=== PATIENT | male | born 1955 | race Hispanic/Latino ===

== ENCOUNTER 2022-09-18 00:07 | Emergency (ER) | payer SELFPAY ==
[2022-09-18 01:00] LABS: Absolute Lymphocytes (CBC) 2.1 K/uL (0.7-4.9); Hematocrit 46.5 % (39.6-49.0); Lymphocytes % 36.4 % (15.3-44.8); MCV 94.8 fL (80-100); MPV 8.9 fL (7.6-11.3); RBC Red Blood Cell Count 4.91 M/uL (4.33-5.43)
[2022-09-18] MEDS ORDERED: CEFAZOLIN SODIUM 1 GM/VIAL ONE (01:05)
[2022-09-18] MEDS ORDERED: NA CHLORIDE 0.9% 100 ML ONE (01:05)
[2022-09-18] MEDS ORDERED: TDAP (DIPHTH,PERTUSS(ACELL),TET VAC) 0.5 ML VIAL IMVAC ONE (01:06)
[2022-09-18 01:08] LABS: Protime INR 0.97
[2022-09-18 01:16] LABS: Potassium 3.5 mEq/L (3.5-5.1)
--- NOTE | 2022-09-18 02:10 | ER ---
Nurse's Notes [facility] Name: Leonid Hagen Age: 66 yrs Sex: Male : 1955 Arrival Date: 09/18/2022 Time: 00:07 Bed 6 Private MD: Diagnosis: Laceration of flexor muscle, fascia and tendon of right little finger at wrist and hand level, initial encounter Presentation: 09/18 00:23 Chief complaint: Patient states: hand slipped on knife and cut sustained to carter kl aspect of right ring and 5th finger no active bleeding at this manjinder. Coronavirus screen: Vaccine status: Patient reports being unvaccinated. Ebola Screen: Patient negative for fever greater than or equal to 101.5 degrees Fahrenheit, and additional compatible Ebola Virus Disease symptoms. Initial Sepsis Screen: Does the patient meet any 2 criteria? No. Patient's initial sepsis screen is negative. Does the patient have a suspected source of infection? No. Patient's initial sepsis screen is negative. Risk Assessment: Do you want to hurt yourself or someone else? Patient reports no desire to harm self or others. Note pt reports unable to move 5th finger and reports no feeling in both fingers. 00:23 Method Of Arrival: Ambulatory 00:23 Acuity: MARY 3 kl 02:24 Onset of symptoms was September 17, 2022. rv Triage Assessment: 00:27 General: Appears in no apparent distress. Behavior is calm, cooperative. Pain: Denies kl pain. Injury Description: Laceration was sustained less than 30 minutes ago. a small amount of bleeding noted at this time. 02:24 Musculoskeletal: Circulation, motion, and sensation intact. rv Historical: - Allergies: 00:26 No Known Allergies; kl - Home Meds: 00:26 None [Active]; kl - PMHx: 00:26 None; kl - PSHx: 00:26 None; kl - Immunization history:: Last tetanus immunization: unknown. - Social history:: Smoking status: Patient reports use of chewing tobacco. Screenin:00 [facility] ED Fall Risk Assessment (Adult) History of falling in the last 3 months, rv including since admission No falls in past 3 months (0 pts) Confusion or Disorientation No (0 pts) Intoxicated or Sedated No (0 pts) Impaired Gait No (0 pts) Mobility Assist Device Used No (0 pt) Altered Elimination No (0 pt) Score/Fall Risk Level 0 - 2 = Low Risk Oriented to surroundings, Maintained a safe environment, Educated pt \T\ family on fall prevention, incl call for assistance when getting out of bed, Assessed \T\ reinforced patient's understanding of fall precautions, Provided non-skid footwear, Hourly rounding (assess needs \T\ fall precautionary measures) done, Used ambulatory aids as needed (educated on \T\ assisted with), Used gait belt as appropriate. 01:00 Abuse screen: Denies threats or abuse. Denies injuries from another. Nutritional rv screening: No deficits noted. Tuberculosis screening: No symptoms or risk factors identified. Vital Signs: 00:23 BP 148 / 97; Pulse 81; Resp 18; Temp 98.3; Pulse Ox 98% on R/A; Weight 77.11 kg (R); kl Height 5 ft. 6 in. ; Pain 0/10; 02:07 BP 150 / 93; Pulse 74; Resp 18; Pulse Ox 97% on R/A; rv 00:23 Body Mass Index 27.44 (77.11 kg, 167.64 cm) kl 00:23 Pain Scale: Adult ED Course: 00:08 Patient arrived in ED. ja2 00:20 Grant Rodriguez PA is PHCP. cp 00:20 Montez Barros MD is Attending Physician. cp 00:26 Triage completed. kl 00:52 Initiated transfer to [facility] per Pt request, spoke with Kayla. 01:12 Jeremy Bacon, PAULO is Primary Nurse. rv 01:13 XRAY Hand RIGHT 3 View In Process Unspecified. EDMS 01:23 [facility] called back to do Dr. meliza Campbell and referred for Follow up appt to be placed rather wm than a transfer. Follow up number to call [phone]. 01:30 Patient has correct armband on for positive identification. Bed in low position. Call rv light in reach. Side rails up X 1. Client placed on continuous cardiac and pulse oximetry monitoring. NIBP monitoring applied. 01:30 Inserted saline lock: 18 gauge in left forearm, using aseptic technique. Blood rv collected. 01:37 Initiated transfer to [facility], spoke with Jessy. 02:00 [facility] called back for Dr. meliza Campbell with immediate acceptance of transfer by Dr. Valdovinos to [facility] ER. 02:22 Assist provider with laceration repair on palmar aspect of proximal phalanx of right rv little finger and palmar aspect of proximal phalanx of right ring finger that was 2.5 cm. or less using sutures. Set up tray. Performed by Grant MUSTAFA Dressed with 4X4s, Patient tolerated well. 02:23 Arm band placed on right wrist. rv 02:43 Patient transferred, IV remains in place. rv Administered Medications: 01:13 Drug: Tetanus-Diphtheria Toxoid IM Adult 0.5 ml {Hone Operator: [employer] ([employer]). rv Exp: 01/31/2023. Lot #: [id number]. } Route: IM; Site: right deltoid; 02:07 Follow up: Response: (VIS) Vaccine information sheet provided today. Questions and/or rv concerns addressed. VIS edition date: Oct 17, 2020.; No adverse reaction 01:15 Drug: ceFAZolin IVPB 1 grams Route: IVPB; Site: left forearm; rv 02:07 Follow up: IV Status: Completed infusion rv 02:07 Follow up: Response: No adverse reaction rv 02:15 Drug: morphine IVP or IV 4 mg Route: IVP; Infused Over: 4 mins; Site: left forearm; rv 02:42 Follow up: Response: No adverse reaction; Marked relief of symptoms rv 02:15 Drug: Ondansetron IVP 4 mg Route: IVP; Site: left forearm; rv 02:41 Follow up: Response: No adverse reaction; Marked relief of symptoms rv Medication: 02:23 Vaccine Information Statement (VIS) provided today. Questions and/or concerns rv addressed. VIS edition date: September 18, 2022. Outcome: 02:09 ER care complete, transfer ordered by MD. mayo 02:42 Transferred by private ambulance to [facility], Transfer form completed. rv X-rays sent w/ patient. 02:42 Condition: good 02:42 Instructed on the need for transfer. 02:43 Patient left the ED. rv Signatures: Dispatcher [employer] EDMS Juanis Flores RN RN kl Page, Corey, PA PA cp Vicente, Ronaldo, RN RN rv Marsh, Wendy wm Alexander, Jessica ja2 Corrections: (The following items were deleted from the chart) 02:38 02:00 [facility] called back for to with immediate acceptance of transfer wm by Dr. Valdovinos to [facility] ER wm
--- NOTE | 2022-09-18 02:10 | EDPHYS ---
Physician Documentation [facility] Name: Leonid Hagen Age: 66 yrs Sex: Male : 1955 Arrival Date: 09/18/2022 Time: 00:07 Bed 6 Private MD: ED Physician Montez Barros HPI: 09/18 00:55 This 66 yrs old Male presents to ER via Ambulatory with complaints of Finger Injury. cp 00:55 The patient or guardian reports injury, a laceration, clean. cp 00:55 The complaints affect the palmar aspect of proximal phalanx of right ring finger and cp palmar aspect of proximal phalanx of right little finger. Context: resulted from using knife to clean fish. Onset: The symptoms/episode began/occurred just prior to arrival. Associated signs and symptoms: Pertinent positives: decreased sensation distally, heavy bleeding. Historical: - Allergies: 00:26 No Known Allergies; kl - Home Meds: 00:26 None [Active]; kl - PMHx: 00:26 None; kl - PSHx: 00:26 None; kl - Immunization history:: Last tetanus immunization: unknown. - Social history:: Smoking status: Patient reports use of chewing tobacco. ROS: 01:00 Skin: Positive for laceration(s), of the palmar aspect of proximal phalanx of right cp ring finger and palmar aspect of proximal phalanx of right little finger. 01:00 Constitutional: Negative for chills, fever. cp 01:00 Respiratory: Negative for cough, shortness of breath. 01:00 Neuro: Positive for numbness, of the right little finger and right fourth finger. 01:00 All other systems are negative. Exam: 01:05 Constitutional: The patient appears in no acute distress, alert, awake, non-toxic, well cp developed, well nourished, uncomfortable. 01:05 Head/Face: Normocephalic, atraumatic. cp 01:05 Chest/axilla: Inspection: normal. 01:05 Cardiovascular: Rate: normal, Rhythm: regular. 01:05 Respiratory: the patient does not display signs of respiratory distress, Respirations: normal, no use of accessory muscles, no retractions, labored breathing, is not present, Breath sounds: are clear throughout, no decreased breath sounds, no stridor, no wheezing. 01:05 Abdomen/GI: Inspection: abdomen appears normal. 01:05 Skin: injury, laceration(s), of the palmar aspect of proximal phalanx of right ring finger and palmar aspect of proximal phalanx of right little finger, that can be described as clean, no foreign body, linear, with moderate bleeding, patient unable to flex right fifth finger, decreased sensation noted distally right fourth and fifth fingers, digits intact vascular with brief cap refill noted. Vital Signs: 00:23 BP 148 / 97; Pulse 81; Resp 18; Temp 98.3; Pulse Ox 98% on R/A; Weight 77.11 kg (R); kl Height 5 ft. 6 in. ; Pain 0/10; 02:07 BP 150 / 93; Pulse 74; Resp 18; Pulse Ox 97% on R/A; rv 00:23 Body Mass Index 27.44 (77.11 kg, 167.64 cm) kl 00:23 Pain Scale: Adult kl MDM: 00:38 Patient medically screened. 02:10 Data reviewed: vital signs, nurses notes. 02:10 I considered the following discharge prescriptions or medication management in the emergency department Medications were administered in the Emergency Department. See MAY. 02:15 ED course: consult with DR Valdovinos, hand surgeon, who will accept patient to [facility]. 09/18 00:51 Order name: Basic Metabolic Panel; Complete Time: 01:25 09/18 00:51 Order name: CBC with Diff; Complete Time: 01:25 09/18 01:28 Interpretation: Normal except: PLT 151. 09/18 00:51 Order name: PT-INR; Complete Time: 01:25 09/18 00:51 Order name: XRAY Hand RIGHT 3 View 09/18 00:51 Order name: EKG; Complete Time: 00:51 09/18 00:51 Order name: Cardiac monitoring; Complete Time: 00:55 09/18 00:51 Order name: IV Saline Lock; Complete Time: 00:55 09/18 00:51 Order name: Labs collected and sent; Complete Time: 00:55 09/18 00:51 Order name: O2 Per Protocol; Complete Time: 00:55 09/18 00:51 Order name: O2 Sat Monitoring; Complete Time: 00:55 09/18 02:02 Order name: Dressing - Wound; Complete Time: 02:07 cp 09/18 02:02 Order name: Gloves, Sterile; Complete Time: 02:07 cp 09/18 02:02 Order name: Setup Suture Tray; Complete Time: 02:07 cp Administered Medications: 01:13 Drug: Tetanus-Diphtheria Toxoid IM Adult 0.5 ml {Solid Die Cutter: [employer] ([employer]readalong). rv Exp: 01/31/2023. Lot #: [id number]. } Route: IM; Site: right deltoid; 02:07 Follow up: Response: (VIS) Vaccine information sheet provided today. Questions and/or rv concerns addressed. VIS edition date: Oct 17, 2020.; No adverse reaction 01:15 Drug: ceFAZolin IVPB 1 grams Route: IVPB; Site: left forearm; rv 02:07 Follow up: IV Status: Completed infusion rv 02:07 Follow up: Response: No adverse reaction rv 02:15 Drug: morphine IVP or IV 4 mg Route: IVP; Infused Over: 4 mins; Site: left forearm; rv 02:42 Follow up: Response: No adverse reaction; Marked relief of symptoms rv 02:15 Drug: Ondansetron IVP 4 mg Route: IVP; Site: left forearm; rv 02:41 Follow up: Response: No adverse reaction; Marked relief of symptoms rv Disposition: 02:48 Co-signature as Attending Physician, Montez Barros MD I reviewed the patient's care rt provided by the Advanced Practice Provider and agree with the diagnosis and treatment plan. Disposition Summary: 09/18/22 02:09 Transfer Ordered Transfer Location: [facility] cp Reason: Higher level of care cp Condition: Stable cp Problem: new cp Symptoms: have improved cp Accepting Physician: DR Valdovinos(09/18/22 02:43) rv Diagnosis - Laceration of flexor muscle, fascia and tendon of right little finger at wrist and cp hand level, initial encounter Forms: - Medication Reconciliation Form cp - SBAR form cp Signatures: Dispatcher [employer] Juanis Chan RN RN Grant Her PA PA cp Jeremy Bacon RN RN rv [place], Ryan, MD MD rt Corrections: (The following items were deleted from the chart) 02:43 02:09 DR Wufienberg cp rv
[2022-09-18] MEDS ORDERED: LIDOCAINE 1% MPF 5 ML VIAL ONE (02:12)
[2022-09-18] MEDS ORDERED: BUPIVACAINE 0.5% PF 10 ML VIAL ONE (02:13)
[2022-09-18] MEDS ORDERED: ONDANSETRON 4 MG/2 ML VIAL ONE (02:20)
[2022-09-18] MEDS ORDERED: MORPHINE 4 MG/ML SYR ONE (02:20)
[2022-09-18 04:22] VITALS: BP 148/97; TEMP 98.3; O2SAT 98
--- NOTE | 2022-09-18 22:34 | RAD REPORT ---
EXAM DESCRIPTION: RAD - Hand Right 3 View - 09/18/2022 1:11 am CLINICAL HISTORY: 66 years, Male, laceration COMPARISON: None FINDINGS: 3 X-ray views of the right hand (Frontal, lateral and oblique views) were performed. No acute bony injuries were demonstrated. There is a gauze within the PIP joint fifth finger. No defi nitive radiopaque foreign body is identified.. There are no gross intraosseous lesions. No perios teal reaction were seen. IMPRESSION: No acute bony injuries were demonstrated. Electronically signed by: Ruslan Saba MD 09/18/2022 1:42 AM CDT Due to temporary technical issues with the PACS/Fluency reporting system, reports are being signed by the in house radiologists without review as a courtesy to insure prompt reporting. The interpreting radiologist is fully responsible for the content of the report.
== END 2022-09-18 02:43 | disposition short-term general hospital (02) ==
LOC: ER 00:07
DX: S66.126A Laceration of flexor muscle, fascia and tendon of right little finger at wrist and hand level, initial encounter (principal); S61.214A Laceration without foreign body of right ring finger without damage to nail, initial encounter; W26.0XXA Contact with knife, initial encounter; Y93.G9 Activity, other involving cooking and grilling; Y92.9 Unspecified place or not applicable; F17.220 Nicotine dependence, chewing tobacco, uncomplicated; Z23 Encounter for immunization
CPT/HCPCS: 36415; 80048; 85025; 85610; 90471; 96365; 96375; 99285; J0690; J2001; J2405